=== PATIENT | female | born 1975 | race Caucasian/White ===

== ENCOUNTER → 2017-12-01 | Outpatient (CLI) | payer SELFPAY ==
[~2017-12-01] MED LIST: CEPH500 PO; Cephalexin500 MG PO; Cleocin HCl150 MG PO; DIPH50; Diflucan100 MG PO; FURO20 PO; Flonase 0.05% N16 GM; HYDACE5 PO; HYDHCL25; LEVSOD150 PO; LEVSOD50; LORA10ER; LOVA20; METF500; NAPR550 PO; OMEP20ER PO; PRED10 PO; PRED20 PO; Prinivil10 MG PO; SERT50 PO; SIMV10; SULTRIDS PO
== END | disposition home or self-care (01) ==
LOC: LAB 17:45 → LAB SHORT 17:45
DX: L08.9 Local infection of the skin and subcutaneous tissue, unspecified (principal)
CPT/HCPCS: 87070; 87077; 87147; 87186; 87205

== ENCOUNTER 2020-08-21 12:54 | Emergency (ER) | payer OTHER ==
[~2020-08-21] VITALS: Ht 165.1 cm; Wt 134.5 kg
[2020-08-21 14:09] LABS: BASOPHILS ABSOLUTE AUTO 0.07 K/mm3 (0.00-0.23); BASOPHILS PERCENT AUTO 1 % (0-2); EOSINOPHILS ABSOLUTE AUTO 0.08 K/mm3 (0.00-0.68); EOSINOPHILS PERCENT AUTO 1 % (0-6); Hematocrit 44.1 % (33.0-51.0); Hemoglobin 14.5 g/dL (11.5-16.0); IMMATURE GRAN ABSOLUTE AUTO 0.05 K/mm3 (0.00-0.10); IMMATURE GRAN PERCENT AUTO 0 % (0-1); LYMPHOCYTES ABSOLUTE AUTO 2.35 K/mm3 (0.84-5.20); LYMPHOCYTES PERCENT AUTO 17 % (21-46); MONOCYTES PERCENT AUTO 6 % (4-13); Mean Corpuscular HGB 29.7 pg (26.0-34.0); Mean Corpuscular HGB Conc 32.9 g/dL (31.5-36.5); Mean Corpuscular Volume 90 fL (80-100); Mean Platelet Volume 9.1 fL (9.1-12.4); NEUTROPHILS ABSOLUTE AUTO 10.15 K/mm3 (1.96-9.15); NEUTROPHILS PERCENT AUTO 75 % (41-73); Platelet Count 454 K/mm3 (150-400); RDW Coefficient Variation 14.4 % (11.7-14.2); RDW Standard Deviation 47.7 fL (35.1-46.3); Red Blood Cell Count 4.88 M/mm3 (3.80-5.20)
[2020-08-21 14:19] LABS: Alanine Aminotransfer (ALT/SGP 36 U/L (12-78); Albumin, Blood 3.5 g/dL (3.4-5.0); Albumin/Globulin Ratio 0.6 (0.8-1.8); Alk Phos 104 U/L (50-136); Anion Gap 9 mmol/L (6-16); Aspartate Aminotrans (AST/SGOT 27 U/L (12-37); Bilirubin, Total 0.2 mg/dL (0.1-1.0); Blood Urea Nitrogen 17 mg/dL (8-24); Bun/Creatinine Ratio 17.7 (12.0-20.0); CO2, Blood 25 mmol/L (21-32); Chloride, Blood 103 mmol/L (98-108); Creatinine, Blood 0.96 mg/dL (0.40-1.00); Globulin, Blood 5.6 g/dL (2.2-4.0); Glomerular Filtration Rate >60 (60-); Glucose, Blood 157 mg/dL (70-99); Potassium, Blood 4.1 mmol/L (3.5-5.5); Sodium, Blood 137 mmol/L (136-145); Total Protein, Blood 9.1 g/dL (6.4-8.2)
[2020-08-21] MEDS ORDERED: Prinivil10 MG PO (16:58)
[2020-08-21] MEDS ORDERED: FLUC150A PO (16:58)
== END 2020-08-21 17:07 | disposition home or self-care (01) ==
LOC: ER 12:54
PROVIDERS: Physician Assistant
DX: I89.0 Lymphedema, not elsewhere classified (principal); R06.02 Shortness of breath; I10 Essential (primary) hypertension; E03.9 Hypothyroidism, unspecified
CPT/HCPCS: 36415; 71260; 80053; 83880; 84484; 85025; 85379; 93005; 93010; 93971; 99285-25; A9270; J2405; Q9967

== ENCOUNTER 2021-01-24 18:11 | Inpatient (IN) | payer OTHER ==
[~2021-01-24] VITALS: Ht 167.6 cm; Wt 140.8 kg
[~2021-01-24 18:11] MED LIST changes: +FLUC150A PO
[2021-01-24 18:51] LABS: PCO2 Arterial 36.8 mmHg (35-45); PO2 Arterial 56.8 mmHg (80-100)
[2021-01-24 19:18] LABS: BASOPHILS ABSOLUTE AUTO 0.01 K/mm3 (0.00-0.23); BASOPHILS PERCENT AUTO 0 % (0-2); EOSINOPHILS PERCENT AUTO 0 % (0-6); Hematocrit 44.1 % (33.0-51.0); Hemoglobin 14.3 g/dL (11.5-16.0); IMMATURE GRAN ABSOLUTE AUTO 0.07 K/mm3 (0.00-0.10); IMMATURE GRAN PERCENT AUTO 1 % (0-1); LYMPHOCYTES ABSOLUTE AUTO 0.78 K/mm3 (0.84-5.20); LYMPHOCYTES PERCENT AUTO 9 % (21-46); MONOCYTES ABSOLUTE AUTO 0.32 K/mm3 (0.16-1.47); MONOCYTES PERCENT AUTO 4 % (4-13); Mean Corpuscular HGB 29.4 pg (26.0-34.0); Mean Corpuscular HGB Conc 32.4 g/dL (31.5-36.5); Mean Corpuscular Volume 91 fL (80-100); Mean Platelet Volume 10.2 fL (9.1-12.4); NEUTROPHILS ABSOLUTE AUTO 7.29 K/mm3 (1.96-9.15); NEUTROPHILS PERCENT AUTO 86 % (41-73); Platelet Count 309 K/mm3 (150-400); RDW Coefficient Variation 14.2 % (11.7-14.2); RDW Standard Deviation 47.3 fL (35.1-46.3); Red Blood Cell Count 4.87 M/mm3 (3.80-5.20); White Blood Cell Count 8.47 K/mm3 (4.00-11.30)
[2021-01-24 19:30] LABS: SARS-Cov-2 (COVID-19) PCR, MMC POSITIVE (NEGATIVE)
[2021-01-24 19:32] LABS: Alanine Aminotransfer (ALT/SGP 49 U/L (12-78); Albumin/Globulin Ratio 0.6 (0.8-1.8); Alk Phos 72 U/L (50-136); Anion Gap 10 mmol/L (6-16); Aspartate Aminotrans (AST/SGOT 98 U/L (12-37); Bilirubin, Total 0.4 mg/dL (0.1-1.0); Blood Urea Nitrogen 14 mg/dL (8-24); CO2, Blood 25 mmol/L (21-32); Calcium, Blood 8.9 mg/dL (8.5-10.1); Chloride, Blood 98 mmol/L (98-108); Creatinine, Blood 0.87 mg/dL (0.40-1.00); Globulin, Blood 5.1 g/dL (2.2-4.0); Glomerular Filtration Rate >60 (60-); Glucose, Blood 182 mg/dL (70-99); Magnesium, Blood 2.3 mg/dL (1.6-2.4); Potassium, Blood 3.9 mmol/L (3.5-5.5); Sodium, Blood 133 mmol/L (136-145); Total Protein, Blood 8.1 g/dL (6.4-8.2); Troponin I 0.095 ng/mL (0.000-0.040)
--- NOTE | 2021-01-25 03:00 | NUR ---
PT ADMITTED TO ROOM ICU 9 AT 0220 FROM ED. REPORT RECEIVED. SLIDE TRANSFERRED TO BED FROM [facility]. PT DEMONSTRATES EXERTIONAL DYSPNEA. WEARING BIPAP AT 18/14 WITH FIO2 AT 100 PERCENT. MAINTAINS SATURATIONS 90-93 PERCENT. PT ALERT AND ORIENTED. PLEASANT AND COOPERATIVE WITH CARE AND ASSESSMENT. GOOD HISTORIAN. STATES SHE HAS NOT FELT WELL FOR > 1 WEEK. HAS NOT HAD ANY PRODUCTIVE COUGHS. WILL REVIEW CHART AND PLAN OF CARE FOR THIS PT.
[2021-01-25 04:31] LABS: Source, Urine Catheter
[2021-01-25 04:34] LABS: Bilirubin, Urine Neg (Neg); Blood, Urine 4+ (Neg); Glucose Qualitative, Urine Neg (Neg); Ketones, Urine Neg (Neg); Leukocyte Esterase, Urine 1+ (Neg); Nitrite, Urine Neg (Neg); Protein, Urine 3+ (Neg); Specific Gravity, Urine 1.015 (1.003-1.022); Urobilinogen, Urine 1+ (Normal)
[2021-01-25 04:38] LABS: Appearance, Urine Clear (Clear); Color, Urine Amber (P-Yellow)
[2021-01-25 04:39] LABS: Bacteria Mod /hpf; Red Blood Cells, Urine 0-2 /hpf (0-2)
[2021-01-25 04:40] LABS: Squamous Epithelial Cells Few /hpf (Few)
[2021-01-25 05:25] LABS: BASOPHILS ABSOLUTE AUTO 0.01 K/mm3 (0.00-0.23); BASOPHILS PERCENT AUTO 0 % (0-2); EOSINOPHILS PERCENT AUTO 0 % (0-6); Hematocrit 41.7 % (33.0-51.0); Hemoglobin 13.6 g/dL (11.5-16.0); IMMATURE GRAN ABSOLUTE AUTO 0.05 K/mm3 (0.00-0.10); IMMATURE GRAN PERCENT AUTO 1 % (0-1); LYMPHOCYTES ABSOLUTE AUTO 0.78 K/mm3 (0.84-5.20); LYMPHOCYTES PERCENT AUTO 10 % (21-46); MONOCYTES ABSOLUTE AUTO 0.37 K/mm3 (0.16-1.47); MONOCYTES PERCENT AUTO 5 % (4-13); Mean Corpuscular HGB 29.4 pg (26.0-34.0); Mean Corpuscular HGB Conc 32.6 g/dL (31.5-36.5); Mean Corpuscular Volume 90 fL (80-100); Mean Platelet Volume 9.7 fL (9.1-12.4); NEUTROPHILS ABSOLUTE AUTO 6.35 K/mm3 (1.96-9.15); NEUTROPHILS PERCENT AUTO 84 % (41-73); Platelet Count 293 K/mm3 (150-400); RDW Coefficient Variation 14.3 % (11.7-14.2); Red Blood Cell Count 4.63 M/mm3 (3.80-5.20); White Blood Cell Count 7.56 K/mm3 (4.00-11.30)
[2021-01-25 05:48] LABS: Alanine Aminotransfer (ALT/SGP 47 U/L (12-78); Albumin, Blood 2.7 g/dL (3.4-5.0); Albumin/Globulin Ratio 0.5 (0.8-1.8); Alk Phos 65 U/L (50-136); Anion Gap 9 mmol/L (6-16); Aspartate Aminotrans (AST/SGOT 78 U/L (12-37); Bilirubin, Total 0.3 mg/dL (0.1-1.0); Blood Urea Nitrogen 18 mg/dL (8-24); Bun/Creatinine Ratio 21.6 (12.0-20.0); CO2, Blood 27 mmol/L (21-32); Chloride, Blood 101 mmol/L (98-108); Creatinine, Blood 0.83 mg/dL (0.40-1.00); Globulin, Blood 5.1 g/dL (2.2-4.0); Glomerular Filtration Rate >60 (60-); Glucose, Blood 163 mg/dL (70-99); Potassium, Blood 3.8 mmol/L (3.5-5.5); Sodium, Blood 137 mmol/L (136-145); Total Protein, Blood 7.8 g/dL (6.4-8.2)
--- NOTE | 2021-01-25 06:20 | NUR ---
PT HAS MADE SEVERAL ATTEMPTS TO VOID THIS MORNING AND WAS BLADDER SCANNED FOR > 450 ML. PT AGREES TO AND RECEIVES BROTHERS CATHETER. NO ISSUES WITH INSERTION. URINE SAMPLE JOSELUIS IN COLOR. SAMPLE SENT TO LAB FOR PROCESSING UA. RESPIRATORY THERAPY INCREASES BIPAP TO 18/15 TO HELP PT MAINTAIN > 90 PERCENT SATURATIONS. PT HAS NO COMPLAINTS THIS MORNING. WILL CONTINUE TO MONITOR PT, AND WILL REPORT OFF TO ONCOMING RN.
--- NOTE | 2021-01-25 08:17 | NUR ---
Noted pt was alert, awake, and able to carry on conversation. States that she is tolerating the bipap, but the pressures are uncomfortable. SpO2 while supine ranging 87-93%, even after deep breathing, coughing, and repositioning on the supine position. She was assisted to lie on her left side, and spo2 is consistently 96-98%. she appears to be comfortable.
--- NOTE | 2021-01-25 10:37 | NUR ---
ASSUMED CARE REPORT FROM MCKAYLA/BERNIE AT 0700. PT RESTING IN BED. BIPAP IN PLACE, 100%. RR 40'S. PT ABLE TO SPEAK IN SHORT SENTANCES. LUNGS DIM THROUGHOUT. PT STATES SHE IS TOLERATING BIPAP AT THIS TIME. ABLE TO REPOSITION SELF. MAEW. SCALING TO LOWER EXT BILATERALLY. BROTHERS PATENT, DRAINING CLEAR YELLOW URINE TO GRAVITY. VSS. WILL CONTINUE TO MONITOR.
--- NOTE | 2021-01-25 13:11 | NUR ---
REASSESSMENT PT STATUS UNCHANGED. PRONED SELF FOR SHORT PERIOD OF TIME, APPROX 1.5 HOURS.
--- NOTE | 2021-01-25 16:12 | NUR ---
Chika has been awake alert, oriented when awakened from naps. Sleeping intermittently all day long, wearing the bipap. Fio2 was weaned from 100% to 80% at 1600. She c/o the mask being uncomfortable, blows air into her eyes. Discussed with RT Heather options for this evening; possibly a full face mask may be better. Pt has also been self-repositioning at times with cues, other times independently. She has been able to prone twice today, for at least 1 hour at a time. Urine output is decreasing from last night, still clear yellow, but dark and 450 cc output total this shift.
--- NOTE | 2021-01-25 19:56 | NUR ---
ASSUMED CARE OF PT AT 1900, REPORT RECEIVED FROM JEANNIE DE LA CRUZ. PT RESTING IN BED ON BIPAP, TOLERATING WELL. BIPAP SETTINGS 18/15 FIO2 80% WITH RR 20'S. PT ALERT AND ORIENTED, DENIES NEEDS AT THIS TIME. HAS REQUESTED SOMEONE CALL HER TO FIND OUT HOW HE IS DOING HE IS HOME SICK WITH COVID. PT ABLE TO MOVE SELF AROUND IN BED. BROTHERS DRAINING TO GRAVITY. PT NPO AT THIS TIME.
--- NOTE | 2021-01-25 23:05 | NUR ---
SPOKE WITH KARISHMA'S SUSHMA @ 2200 PER PT'S REQUEST TO CHECK ON HOW HE WAS DOING HE IS HOME WITH RUPAL. DURING PHONE CONVERSATION SUSHMA SHARED THAT HE IS HAVING A LOT OF PAIN AND IS UNABLE TO SLEEP, STATED THAT HE WAS GIVEN A PRESCRIPTION WHILE IN THE ED BUT HAS BEEN UNABLE TO FILL IT AND IS UNSURE WHAT IT WAS FOR (SAID IT WAS TO BE TAKEN ONCE A DAY X3 DAYS). SUSHMA SHARED THAT HE DOES NOT HAVE A WAY OF CHECKING HIS OXYGEN SATURATIONS BUT IS ON OXYGEN CURRENTLY. GAVE SUSHMA AN UPDATE ON KARISHMA, SUSHMA ASKED THAT WE TAKE GOOD CARE OF HER AND THAT HE HOPES "SHE MAKES IT, I'M NOT SURE I WILL". ENCOURAGED SUSHMA TO CALL EMS FOR WELFARE CHECK AT HOME, STATES HE IS NOT INTERESTED THEY "GOT PISSY WITH ME" LAST TIME HE SAW THEM. PROGRAM MANAGEMENT MANAGER CONSULT ORDERED THERE IS NO FAMILY NEARBY OR FRIENDS TO CHECK ON SUSHMA OR TO PROVIDE ANY ASSISTANCE IF NEEDED.
--- NOTE | 2021-01-26 01:45 | NUR ---
CALLED DR MARIE REGARDING PT'S INCREASING ANXIETY RELATED TO WEARING BIPAP MASK. NEW ORDER PLACED FOR PRECEDEX.
[2021-01-26 04:06] LABS: Hematocrit 41.5 % (33.0-51.0); Hemoglobin 13.1 g/dL (11.5-16.0); Mean Corpuscular HGB 29.1 pg (26.0-34.0); Mean Corpuscular HGB Conc 31.6 g/dL (31.5-36.5); Mean Corpuscular Volume 92 fL (80-100); Mean Platelet Volume 10.2 fL (9.1-12.4); NRBC ABSOLUTE 0.02 K/mm3 (0.00-0.02); NRBC Auto 0.2 /100 WBC (0.0-0.2); Platelet Count 335 K/mm3 (150-400); RDW Coefficient Variation 14.2 % (11.7-14.2); RDW Standard Deviation 48.2 fL (35.1-46.3)
[2021-01-26 04:20] LABS: Albumin, Blood 2.5 g/dL (3.4-5.0); Anion Gap 5 mmol/L (6-16); Blood Urea Nitrogen 23 mg/dL (8-24); Bun/Creatinine Ratio 28.3 (12.0-20.0); CO2, Blood 31 mmol/L (21-32); Calcium, Blood 8.1 mg/dL (8.5-10.1); Chloride, Blood 103 mmol/L (98-108); Creatinine, Blood 0.81 mg/dL (0.40-1.00); Glomerular Filtration Rate >60 (60-); Glucose, Blood 150 mg/dL (70-99); Magnesium, Blood 2.4 mg/dL (1.6-2.4); Phosphorus, Blood 2.4 mg/dL (2.5-4.9); Sodium, Blood 139 mmol/L (136-145)
--- NOTE | 2021-01-26 04:44 | NUR ---
UPDATE NO CHANGE TO PRIOR ASSESSMENT. PT REQUESTING FOOD AND DRINK ANYTIME STAFF ENTERS THE ROOM, TALKED TO PT ABOUT NPO STATUS AND RISK FOR ASPIRATION. ORAL SWABS USED TO WET MOUTH. PT STAYED PRONED FOR APPROX 30 MINUTES BEFORE TURNING ONTO HER SIDE DUE TO DISCOMFORT OF BEING PRONED. FIO2 INCREASED TO 85%. PT DENIES PAIN AT THIS TIME.
--- NOTE | 2021-01-26 06:32 | NUR ---
SHIFT SUMMARY PT REMAINS ON BIPAP, SETTINGS 18/15 FIO2 90% SPO2 92%. PRECEDEX STARTED THIS SHIFT, DUE TO PT'S INCREASING ANXIETY RELATED TO BIPAP MASK. TRIALED PT ON HFNC LASTING 15 MINS; SIPS OF WATER AND ENSURE GIVEN, PT TOLERATED WELL. ABLE TO HOLDS SPO2 >87% BEFORE PLACING BACK ON BIPAP. SBP SOFT AFTER PRECEDEX STARTED, TITRATED DOWN TO 0.2 MCG/KG (FROM 0.4 MCG/KG). DR MARIE NOTIFIED ABOUT SOFT PRESSURES, NEW ORDERS PLACED FOR 500 ML NS BOLUS AND 75 ML/HR FOR 1L AFTER BOLUS COMPLETE. BROTHERS DRAINING DARK JOSELUIS URINE TO GRAVITY, 450 ML'S OUT THIS SHIFT. PT ABLE TO REPOSITION SELF. PT REMAINS ALERT AND ORIENTED.
--- NOTE | 2021-01-26 10:14 | NUR ---
Call to Dr. Sams to request oral medication for anxiety to help the pt to tolerate the bipap, so that precedex gtt can be discontinued. Plan is to move the pt out to PCU 9 when the room is clean.
--- NOTE | 2021-01-26 10:54 | NUR ---
Attempted AirVo, but pt did not tolerate being off the bipap for longer than 2-3 minutes. Recovered her on bipap 100%, and then she could take oral ativan with sip of water by pulling mask aside, just for a few seconds. Pt is saying that she just wants to have something to drink, that she just wants to go home and get in the bathtub. Bipap mask pulled aside just briefly for sips of ensure.
--- NOTE | 2021-01-26 11:05 | NUR ---
TRANSFER PATIENT TRANSFERRED TO PCU ON BIPAP WITH ASSISTANCE OF RT. REPORT GIVEN TO PCU NURSE. NORMAL SALINE INFUSING AT 75 ML/HR. PRECEDEX DRIP STOPPED WHEN PATIENT WAS GIVEN ORAL ATIVAN.
--- NOTE | 2021-01-26 11:59 | NUR ---
Received report from [employer] [facility]CH[employer]ER and pt was transferred to pcu. She is alert to pain only. She is on BIPAP @ 90% and her RR is elevated in the 40-0's RT and Dr Sams are aware. Per Dr Sams pt was restarted on the prededex gtt at 0.2 mcg/kg/hr. Her heart rate is sustaining in the 70's. BP 112/90. Her left forearm IV was infiltrated so it was removed and a powerglide was intered to her right upper arm. She has her call light in reach.
--- NOTE | 2021-01-26 16:28 | NUR ---
Shift Summary Pt is oriented to herself and to pain and situation at times. She remains on the BIPAP and is currently at 100% fio2. She did pull her mask off once this afternoon as she was pretty anxious and ativan was given as ordered and was effective. She definitely does better on her side and she turns back and forth between her side and back. Her sats are currently in the 80's and Rt is aware. Clinimix was started as ordered. Her brooks remains in place. Her dad was updated and very grateful for her care. Her VSS.
--- NOTE | 2021-01-26 21:55 | NUR ---
2154, PT BECAME VERY AGITATED AND ANXIOUS - PULLED OFF BIPAP AND BEGAN TO SCREAM OUT FOR HELP WITH MASK OFF FACE AND IN HANDS. RN TO ROOM AND SAW MASK OFF FACE AND HOSE DISCONNECTED WELL. QUICKLY GOT MASK BACK ON FACE, AND INCREASED FIO2 TO100% UNTIL PATIENT WAS ABLE TO RECOVER. PRN ATIVAN GIVEN TO HELP KEEP PATIENT RELAXED TO TOLERATE BIPAP BETTER. 2158, PT NOW SATTING 90% STILL ON 100% FIO2, SITTING UPRIGHT WIHT A HIGH RR OF 60-70'S. BP 137/93. 2203, ATTEMPTING TO PRONE, SATS NOW 95% RR 50. HR 77.
[2021-01-27 03:59] LABS: Mean Corpuscular HGB 29.3 pg (26.0-34.0); Mean Corpuscular HGB Conc 31.6 g/dL (31.5-36.5); Mean Corpuscular Volume 93 fL (80-100); Mean Platelet Volume 10.1 fL (9.1-12.4); NRBC ABSOLUTE 0.02 K/mm3 (0.00-0.02); NRBC Auto 0.2 /100 WBC (0.0-0.2); Platelet Count 249 K/mm3 (150-400); RDW Coefficient Variation 14.2 % (11.7-14.2); RDW Standard Deviation 48.3 fL (35.1-46.3); White Blood Cell Count 10.94 K/mm3 (4.00-11.30)
[2021-01-27 04:15] LABS: Anion Gap 5 mmol/L (6-16); Blood Urea Nitrogen 30 mg/dL (8-24); Bun/Creatinine Ratio 34.5 (12.0-20.0); CO2, Blood 31 mmol/L (21-32); Calcium, Blood 7.9 mg/dL (8.5-10.1); Chloride, Blood 103 mmol/L (98-108); Creatinine, Blood 0.87 mg/dL (0.40-1.00); Glomerular Filtration Rate >60 (60-); Glucose, Blood 227 mg/dL (70-99); Magnesium, Blood 2.3 mg/dL (1.6-2.4); Phosphorus, Blood 2.6 mg/dL (2.5-4.9); Sodium, Blood 139 mmol/L (136-145)
--- NOTE | 2021-01-27 08:14 | NUR ---
PT FOUND TO BE ANXIOUS AND AGITATED AT SHIFT CHANGE. WAS PRONED BUT BECAME SO AGITATED SHE HAD TO TURN OVER TO HER BACK. SPO2 WAS INITITALLY IN THE 70'S BUT QUICKLY DROPPED TO 50'S. RESP RATE IN THE 70'S ON BIPAP WITH 100% FIO2. INCREASED PRECEDEX AND PT WAS GIVEN ATIVAN FOR ANXIETY WITHOUT RESULTS. CALLED FOR ER DOC TO INTUBATE PT AND EVENTUALLY CALLED A CODE BLUE DUE TO PT DECLINING RAPIDLY. PT NEVER LOST PULSE. STARTING TO MOTTLE IN UPPER EXTREMITIES. DR. CHAVARRIA FROM ANESTHESIA CAME AND INTUBATED PT. RSI KIT USED FOR INTUBATION. AFTER SPO2 STABILIZED WITH VENT PT WAS MOVED TO ICU 9. REPORT GIVEN TO RN AT BEDSIDE. DR. LONDON UPDATED IN PERSON ON ARRIVAL TO ICU WELL. STAFF WAS ABLE TO REACH HER MOM TO UPDATE BUT UNABLE TO GET .
--- NOTE | 2021-01-27 08:22 | NUR ---
SHIFT SUMMARY UPON ARRIVAL, PT WAS LETHARGIC, AND LYING IN SUPINE POSITION ON BED. EASILY AROUSABLE, BUT NOTED TO BE VERY ANXIOUS. SATS MAINTAINNG 88-94% ON BIPAP SETTINGS 18/15 100% FIO2. TELE READING NSR 70-80'S. BROTHERS IN PLACE DRIANING TO GRAVITY, MONTSE CARE PERFORMED. 2 BOWEL SMEARS - INCONTINENT. PT THROUGHOUT NIGHT BECAME INCREASINGLY AGITATED AND ANXIOUS ABOUT WEARING THE BIPAP MASK, MAKING O2 SATS GO DOWN. RN ADMINISTERED ATIVAN WITH HOPES THAT WOULD HELP PT CALM DOWN. PT RELAXED FOR ABOUT A FEW HOURS, WE PRONED AND REPOSITIONED SEE FIT TO HELP MAINTAIN SATS IN MEANTIME. LATER, PT BECAME MORE AND MORE AGITATED TO THE POINT OF RIPPING OFF BIPAP MASK AND SWINGING LEGS OVER BED RAILS. AT THIS POINT, RN STARTED PRECEDEX GTT AFTER CONSULTING WITH PCU CHARGE AND TWO ICU CHARGES. PRECEDEX STARTED AND PT REMAINED CALM AND STABLE. O2 SATS IMPROVED TO HIGH 90%'S WHILE PT PRONED, BP AND HR WNL. MAYBE AN HOUR OR TWO LATER, PT HAD ANOTHER ANXIOUS EPISODE - THIS RN CALLED MD TO GET ADDITIONAL ORDER OF ZYPREXA TO HELP KEEP PATIENT CALM, AND INCREASED FREQUENCY OF PRN ATIVAN FROM Q6 TO Q4. ALSO OBTAINED ORDER FOR SOFT WRIST RESTRAINTS. SOFT RESTRAINTS PUT IN PLACE WHILE PT IN PRONED POSITION. SATS >90%, HR 70'S, RR CONSISTENTLY BEEN RANGING 40-60 OVERNIGHT, WHICH WAS UNCHANGED SINCE PT WAS ADMITTED. VSS, UP UNTIL ABOUT 0700. 0700 - PM RN IN MIDDLE OF REPORT TO AM RN, NOTING THAT PATIENT IS ON FINE LINE BETWEEN STABLE AND UNSTABLE. IN MIDST OF REPORT, PT HAD ANOTHER ANXIETY ATTACK, PM RN ENTERED ROOM TO GET PATIENT TO CALM DOWN AGAIN, GAVE PRN ATIVAN, INCREASED PRECEDEX. DID ALL INTERVENTIONS THAT HELPED PATIENT RELAX BEFORE. UNFORTUNATELY, PT DID NOT CALM DOWN NOR RECOVER HER SATS AT THIS TIME. RN CALLED FOR RESPIRTATORY, ACCOUNTING RECONCILIATION CLERK AND MULTIPLE NURSES TO HELP PULL MEDICINE, ATTEMPT TO REPOSITION HER SUPINE, GIVE HER A BREAK FROM HER RESTRAINTS TO NOT FEEL CONFINED. PT RAPIDLY DECLINING, CHRISTIAN MILLER CALLED AND TEAM AWAITS SOME TIME FOR MD TO ARRIVE TO INTUBATE. ER MD DID ARRIVE, BUT DID NOT INTUBATE D/T TO PATIENT HAVING PULSE AND STATING PT IS STABLE. PT SATS DROP TO 50% AT THIS TIME, MULTIPLE NURSES AND RESPIRATORY STAFF IN ROOM HOLDING BIPAP AND DOING ALL INTERVENTIONS POSSIBLE TO GET PT SATS UP TO 77%. A DIFFERENT MD ARRIVES, SATS EVENTUALLY DROP TO 40%, MD QUICKLY INTUBATES PATIENT. PT VENTED, OG TUBE PLACED, RESTRAINTS BACK ON, SEDATED SOME, AND TRANSFERRED TO ICU.
[2021-01-27 10:57] LABS: PCO2 Arterial 44.2 mmHg (35-45); PO2 Arterial 72.9 mmHg (80-100)
--- NOTE | 2021-01-27 10:58 | NUR ---
PT TO ICU 9 FROM PCU @0800 FOLLOWING RESPIRATORY CODE WITH EMERGENT INTUBATION. PT ARRIVES VENTILATED, CURRENT VENT SETTINGS PC 22/20. PROPOFOL @ 50 MCG/KG/MIN AND PRECEDEX @ 1.4 MCG/KG/HR. LEVOPHED STARTED D/T PERSISTENT HYPOTENSION WITH MAP IN 50%. LEVOPHED INFUSING AT 5 MCG/MIN TO MAINTAIN MAP>65. OGT TO LIS WITH MINIMUM BILE OUTPUT. PICC PLACED TO JAZZ. DR. LONDON CALLED PT'S TO UPDATE, LEFT VOICEMAIL.
--- NOTE | 2021-01-27 18:43 | NUR ---
PT REMAINS INTUBATED, VENT SETTINGS AC 26/360/16/55%. PRECEDEX ON STANDBY. PROPOFOL @ 50 MCG/KG/MIN. LEVOPHED @ 5 MCG/MIN. 700 ML DARK JOSELUIS URINE WITH MODERATE AMOUNT OF SEDIMENT. PT'S UPDATED WITH PT'S STATUS AND PLAN OF CARE, PER DR. LONDON- WAS DISTRAUGHT AND A WELFARE CHECK WAS INITITATED. WILL REPORT TO ONCOMING NURSE.
--- NOTE | 2021-01-27 20:00 | NUR ---
IN TO SEE PT, PT BREATHING RAPIDLY, SATS HI 80'S, FIGHTING THE VENT, BROTHERS CATH HOOKED UP TO TEMP PROBE, TEMP SHOWS 104, EXTREMITIES COOL, LEVO @ 5MCG, NOTIFIED OF TEMP AND BREATHING RATE, SATS. ORDERS RECEIVED. LUNGS COARSE T/O WITH RETURN OF WHITE/SPAIN IN ETT. ABD SOFT, BROTHERS WITH JOSELUIS RETURN. PLAN TO PRONE AND PARALYZE.
--- NOTE | 2021-01-27 21:00 | NUR ---
PT STARTED ON NIMBEX, BOLUS GIVEN PER ORDERS, PT PLACED PRONE WITH ASSIST OF RESP THERAPY AND PHYS.THERAPY AND OCCUP.THER. PT TOLERATED WELL. PT CONTINUES WITH ELEV.TEMP, MEDICATED WITH TYLENOL PT, EXTREMITIES STILL COOL, DIFFICULT TO GET A WAVEFORM FOR BIOX SO EARPROBE IN USE. PT PADDED WELL, JAZZ PICC LINE DRESSING EDGES ROLLED UP, CHANGED PER STERILE TECHNIQUE. PT NOW ON PROPOFOL 40MCG/KG, NIMBEX 2MCG/KG, LEVO @ 5MCG/
--- NOTE | 2021-01-28 01:15 | NUR ---
PT HAS BEEN IN PRONE POSITION SINCE AROUND 2099, SHE WAS STARTED ON NIMBEX @ 2 AND PROPOFOL IS @ 40 MCG/KG, SHE IS TOLERATING WELL, SKIN IS DIAPHORETIC AND COOL, TEMP IS SLOWLY COMING DOWN TO 103.1. PT BEING REPOSITIONED Q2. NO OTHER CHANGES SINCE SHIFT ASSESSMENT.
[2021-01-28 03:37] LABS: Hematocrit 41.6 % (33.0-51.0); Hemoglobin 13.1 g/dL (11.5-16.0); Mean Corpuscular HGB 29.9 pg (26.0-34.0); Mean Corpuscular HGB Conc 31.5 g/dL (31.5-36.5); Mean Corpuscular Volume 95 fL (80-100); NRBC ABSOLUTE 0.03 K/mm3 (0.00-0.02); NRBC Auto 0.2 /100 WBC (0.0-0.2); Platelet Count 106 K/mm3 (150-400); RDW Coefficient Variation 14.8 % (11.7-14.2); RDW Standard Deviation 52.2 fL (35.1-46.3); Red Blood Cell Count 4.38 M/mm3 (3.80-5.20)
[2021-01-28 03:51] LABS: Bun/Creatinine Ratio 28.8 (12.0-20.0); Calcium, Blood 7.3 mg/dL (8.5-10.1); Creatinine, Blood 1.18 mg/dL (0.40-1.00); Magnesium, Blood 2.2 mg/dL (1.6-2.4); Phosphorus, Blood 3.5 mg/dL (2.5-4.9)
--- NOTE | 2021-01-28 04:00 | NUR ---
PT'S BLOOD PRESSURE HAS STABILIZED AND THE LEVOPHED HAS BEEN PLACED ON STANDBY NO OTHER CHANGES FROM MIDNIGHT.
[2021-01-28 04:07] LABS: BAND PERCENT MAN 12 % (0-8); BASOPHILS PERCENT MAN 0 % (0-2); EOSINOPHILS PERCENT MAN 0 % (0-6); LYMPHOCYTES ABSOLUTE MAN 0.75 K/mm3 (0.84-5.20); LYMPHOCYTES PERCENT MAN 6 % (21-46); METAMYELOCYTE ABSOLUTE MAN 0.12 K/mm3 (0.00-0.00); METAMYELOCYTE PERCENT MAN 1 % (0-0); MONOCYTES ABSOLUTE MAN 0.25 K/mm3 (0.16-1.47); MONOCYTES PERCENT MAN 2 % (4-13); MYELOCYTE ABSOLUTE MAN 0.12 K/mm3 (0.00-0.00); MYELOCYTE PERCENT MAN 1 % (0-0); NEUTROPHILS ABSOLUTE MAN 11.34 K/mm3 (1.96-9.15); SEG NEUTROPHILS PERCENT MAN 78 % (41-73); TOTAL CELLS COUNTED 100
[2021-01-28 05:50] LABS: PCO2 Arterial 53.7 mmHg (35-45); PO2 Arterial 90.3 mmHg (80-100); pH Blood Arterial 7.31 (7.35-7.45)
--- NOTE | 2021-01-28 06:29 | NUR ---
KARISHMA HAS BEEN IN PRONE POSITION SINCE EARLY IN THE SHIFT, SHE IS ON NIMBEX @ 2, PROPOFOL @ 50, NS @ 75, LEVO ON SB, PRECEDEX ON SB. VENT SETTINGS AC 26, vT 360, PEEP 16, FIO2 65%. PIVOT TUBE FEEDING @ 20ML/HR WITH CBG'S OF 184 AND 208. CONTINUES IN NSR, BLOOD PRESSURE STABLE, BROTHERS TO GRAVITY DRAINAGE. NO OTHER CHANGES NOTED.
--- NOTE | 2021-01-28 09:29 | NUR ---
AM NOTE... ASSUMED CARE OF PT AT 0700, PT IS INTUBATED, SEDATED AND PARALYZED FOR VENT TOLERANCE. PT IS CURRENTLY PRONED ON AC/PC AT 26/360/18/65% WITH O2 SATS>90% L/S COARSE IN THE UPPER LOBES AND DIM IN THE LOWER LOBES. PT IS IN ST AT 100-110'S, PT HAS DEPENDENT EDEMA TO HER HANDS AND FACE. PT'S BP STABLE WITH LEVOPHED OFF SINCE LAST NIGHT. TUBE FEED IS RUNNING PER ORDERS WITH NO RESIDUALS. PT IS NOTED TO HAVE A BLOODY NOSE AND A LARGE AMOUNT OF BLOOD SUCTIONED FROM HER MOUTH, IT IS UNKNOWN IF THERE IS TRUAMA IN THE PT'S MOUTH OR IF THIS IS FROM HER BLOODY NOSE D/T THE PT BEING PRONE AND NOT BEING ABLE TO SEE WELL IN HER MOUTH. PT'S BROTHERS IS PATENT AND DRAINING TO GRAVITY. NIMBEX WAS ON 2 AT THE START OF THIS SHIFT, THIS RN TURNED IT FROM 2 TO 1.5, PT IS TOLERATING THIS WELL AND STILL BREATHING WITH THE VENT AT 26 PER MIN AND HER O2 SATS ARE STABLE. PT'S PROPOFOL IS AT 40, PRECEDEX IS ON STANDBY. PT'S BIS IS 20-30'S WHEN WORKING, A NEW BIS STICKER WAS PLACED BUT THE MONITOR STILL IS NOT WORKING ALL THE TIME. AT 0900 DR. LONDON AT THE BEDSIDE TO ASSESS THE PT, THE PT'S NS WAS D/C'd. THE PT'S FATHER WAS UPDATED BY THIS AM. WILL CONTINUE TO MONITOR.
--- NOTE | 2021-01-28 13:40 | NUR ---
PT UPDATE... THE PT WAS UNPRONED AT 1230, THE PT'S O2 SATS DROPPE DOWN TO 74%, DR. LONDON WAS IN THE ROOM AND INCREASED HER PEEP TO 18 AND HER FIO2 TO 100% THIS BROUGHT HER O2 SATS UP TO 88-90%. WILL CONTINUE TO MONITOR.
--- NOTE | 2021-01-28 18:24 | NUR ---
SHIFT SUMMARY... ONCE THE PT WAS UNPRONED THE PEEP INCREASED FROM 16 TO 18 AND THE FIO2 INCREASED FROM 65% TO 100% KEEPING THE PT'S O2 SATS>90% AT APROX 1600 THE PT'S O2 SATS DROPPED DOWN TO 82% SHE WAS TURNED ON HER LEFT SIDE, THE PT WAS PUT BACK SUPINE, THIS HELPED A LITTLE BIT BUT HER O2 SATS WERE STILL 86-87%, RT WAS CALLED AND CAME INTO THE ROOM, PRECUSSION WAS DONE ON THE PT'S LEFT SIDE WHERE THERE IS A LARGE CONSOLIDATION PER THE CHEST XRAY. AFTER THIS THE PT'S O2 SATS IMPROVED TO 90%. PT'S VS HAVE BEEN STABLE T/O THE SHIFT, THE BIS MONITOR HAS BEEN WORKING OFF AND ON T/O THE SHIFT. PT'S BROTHERS IS PATENT AND DRAINING TO GRAVITY. PT HAS NOT HAD A BM THIS SHIFT. PLAN IS TO RE-PRONE THE PT PER THE PRONING SCHEDULE. WILL CONITNUE TO MONITOR UNTIL REPORT IS GIVEN TO ONCOMING RN.
[2021-01-29 04:46] LABS: Hematocrit 45.7 % (33.0-51.0); Hemoglobin 13.6 g/dL (11.5-16.0); Mean Corpuscular HGB 29.4 pg (26.0-34.0); Mean Corpuscular HGB Conc 29.8 g/dL (31.5-36.5); Mean Corpuscular Volume 99 fL (80-100); Mean Platelet Volume 11.8 fL (9.1-12.4); NRBC ABSOLUTE 0.04 K/mm3 (0.00-0.02); NRBC Auto 0.2 /100 WBC (0.0-0.2); Platelet Count 112 K/mm3 (150-400); RDW Coefficient Variation 15.1 % (11.7-14.2); Red Blood Cell Count 4.63 M/mm3 (3.80-5.20); White Blood Cell Count 20.66 K/mm3 (4.00-11.30)
[2021-01-29 04:49] LABS: Bun/Creatinine Ratio 20.8 (12.0-20.0); Calcium, Blood 7.4 mg/dL (8.5-10.1); Creatinine, Blood 1.06 mg/dL (0.40-1.00); Magnesium, Blood 2.4 mg/dL (1.6-2.4); Phosphorus, Blood 2.6 mg/dL (2.5-4.9); Potassium, Blood 4.3 mmol/L (3.5-5.5)
[2021-01-29 05:41] LABS: BAND PERCENT MAN 31 % (0-8); BASOPHILS PERCENT MAN 0 % (0-2); EOSINOPHILS PERCENT MAN 0 % (0-6); LYMPHOCYTES ABSOLUTE MAN 0.82 K/mm3 (0.84-5.20); LYMPHOCYTES PERCENT MAN 4 % (21-46); METAMYELOCYTE PERCENT MAN 1 % (0-0); MONOCYTES PERCENT MAN 1 % (4-13); NEUTROPHILS ABSOLUTE MAN 19.42 K/mm3 (1.96-9.15); SEG NEUTROPHILS PERCENT MAN 63 % (41-73); TOTAL CELLS COUNTED 100
[2021-01-29 05:57] LABS: PCO2 Arterial 82.6 mmHg (35-45); PO2 Arterial 80.8 mmHg (80-100); pH Blood Arterial 7.19 (7.35-7.45)
--- NOTE | 2021-01-29 06:37 | NUR ---
KARISHMA WAS TURNED TO PRONE POSITION EARLY IN THE SHIFT AND HAS BEEN TURNED Q4 WITH HER HEAD. SHE CONTINUES ON THE VENTILATOR WITH SETTINGS AC 26/360/16/90% PROPOFOL @ 40MCG/KG, NIMBEX 1.5 MCG/KG, NS @ TKO. A DOSE OF REMDESIVIR & VANCO MYCIN GIVEN. TF PIVOT 1.5 @ 20ML PER OG. SHE HAS HAD ORAL CARE Q4 AND SHE HAS HAD BLEEDING FROM THE RIGHT SIDE OF HER MOUTH WELL FROM HER NOSE. HER EYES ARE SWOLLEN. PICC IN JAZZ, PG IN PRESTON, PERIPH IN RIGHT HAND. ABG RESULTS CALLED TO WITH NO CHANGES.
--- NOTE | 2021-01-29 08:12 | NUR ---
AM NOTE... ASSUMED CARE OF PT AT 0700, PT IS INTUBATED, SEDATED AND PARALYZED ON NIMBEX AT 1.5MCG, AND PROPOFOL AT 40MCG. PT IS CURRENTLY PRONED AND HAS BEEN SINCE 1999 LAST NIGHT, THE VENT SETTINGS ARE: AC/VC: 26/360/18/90% WITH O2 SATS AT 91-93%. PT'S L/S SLIGHLTY COARSE AND DIM T/O. PT'S ET TUBE IS 8.0 AND 24 AT THE LIP, 23 AT THE TEETH. PT IS COMPLIANT WITH THE VENT AT THIS TIME, TOF IS 0/4 AT A SETTING OF 5. PT HAS A LARGE AMOUNT OF DEPENDENT FACIAL AND MONTSE-ORBITAL EDEMA FROM BEING PRONED. PT ALSO HAS BEEN HAVING BLEEDING FROM HER MOUTH AND NOSE. WHEN SUCTIONED THE PT DOES NOT HAVE A COUGH REFLEX, A SMALL AMOUTH OF THICK SPAIN SECRETIONS NOTED DURING SUCTIONING. PT IS ON TUBE FEEDS VIA OG TUBE RUNNING AT 20MLS/HR WHICH IS THE GOAL RATE, NO RESIDUALS NOTED THIS AM. BT RESENT AND HYPOACTIVE, ABD IS SOFT TO PALP ON THE LEFT SIDE UNABLE TO ASSESS THE RIGHT D/T THE PT BEING PRONED. PT HAS 1+ EDEMA TO HER BLE, THE PULSES ARE PALPABLE ON THE RIGHT LEG BUT DOPPLER WAS NEEDED TO FINE THE PULSES ON THE LEFT. THE RIGHT LEG AND FOOT ARE WARM TO TOUCH BUT THE LEFT FOOT IS COOL WITH A 4 SECOND CAP REFILL. PT'S BROTHERS IS PATENT AND DRAINING TO GRAVITY. WILL CONTINUE TO MONITOR.
[2021-01-29 11:25] LABS: Vancomycin, Random 12.1 ug/mL
--- NOTE | 2021-01-29 13:45 | NUR ---
PT UPDATE... THE PT WAS TURNED SUPINE APROX 1230, ONCE SUPINE THE PT'S O2 SATS DROPPED DOWN TO 78%, RT WAS IN THE ROOM AND CHANGED THE VENT SETTINGS TO AN INCREASED RR IN THE 30'S AND INCREASED THE FIO2 TO 100% PEEP CONITNUES TO BE AT 18. APROX 15 MINS LATER THE PT'S O2 SATS IMPROVED TO 90% FOR 8 MINS THEN DROPPED BACK DOWN TO 86-87%. DR. FINLEY NOTIFIED, WILL CONITUE TO MONITOR THE PT AND IF HER O2 SATS DO NOT IMPROVE WILL RE-PRONE THE PT. WILL CONTINUE TO MONITOR.
--- NOTE | 2021-01-29 18:43 | NUR ---
SHIFT SUMMARY... AT APROX 1500 THE PT'S O2 SAT HAD STARTED TO DROP AGAIN DOWN FROM 87% TO 85% RT WAS CALLED AND CHANGES WERE MADE TO THE PT'S VENT, SHE WAS CHANGED TO PRESSURE SUPPORT AT RATE OF 26 PRESSURE OF 16 PEEP OF 20 AND 100% PT'S O2 SATS IMPROVED TO THE LOW 90'S. PT'S OTHER VS WERE STABLE T/O THE SHIFT. PT HAS NOT HAD BM THIS SHIFT. PT'S BROTHERS IS PATENT AND DRAINING TO GRAVITY, THE PT'S TUBE FEEDS ARE AT GOAL WITH NO RESIDUALS. THIS RN SPOKE WITH THE PT'S MOTHER, FATHER AND , AN UPDATE WAS GIVEN TO THE MOTHER AND THE FATHER BUT WHEN THIS RN SPOKE WITH THE AND OFFERED HIM AN UPDATE HE SAID "NO! I JUST WANT TO SPEAK TO MY ." THE CALL WAS TRANSFERED INTO THE PT'S ROOM AND THE PHONE WAS HELD UP TO THE PT'S EAR WHILE THE SPOKE WITH HER UNTIL HE HUNG UP APROX 2 MINS LATER. THIS RN ALSO HELD THE PHONE FOR THE PT'S MOTHER AND FATHER TO SPEAK TO HER WELL. PALLIATIVE CARE CONSULT WAS PLACED AND THIS RN SPOKE WITH THE PALLAITIVE CARE RN ABOUT THIS PT AND PLAN OF CARE. WILL CONTINUE TO MONITOR UNTIL REPORT IS GIVEN TO ONCOMING RN.
[2021-01-29 19:18] LABS: PCO2 Arterial 78.2 mmHg (35-45); PO2 Arterial 60.7 mmHg (80-100); pH Blood Arterial 7.24 (7.35-7.45)
--- NOTE | 2021-01-29 20:00 | NUR ---
20:[address] FINLEY - no changes to vent settings or drips.
[2021-01-30 04:50] LABS: Hematocrit 38.1 % (33.0-51.0); Hemoglobin 11.3 g/dL (11.5-16.0); Mean Corpuscular HGB 29.2 pg (26.0-34.0); Mean Corpuscular HGB Conc 29.7 g/dL (31.5-36.5); Mean Corpuscular Volume 98 fL (80-100); NRBC ABSOLUTE 0.09 K/mm3 (0.00-0.02); NRBC Auto 0.6 /100 WBC (0.0-0.2); RDW Coefficient Variation 14.9 % (11.7-14.2); RDW Standard Deviation 53.8 fL (35.1-46.3); Red Blood Cell Count 3.87 M/mm3 (3.80-5.20); White Blood Cell Count 15.89 K/mm3 (4.00-11.30)
[2021-01-30 04:54] LABS: Mean Platelet Volume 12.5 fL (9.1-12.4); Platelet Count 107 K/mm3 (150-400)
[2021-01-30 05:21] LABS: Albumin, Blood 1.6 g/dL (3.4-5.0); Anion Gap 1 mmol/L (6-16); Blood Urea Nitrogen 38 mg/dL (8-24); CO2, Blood 36 mmol/L (21-32); Calcium, Blood 6.7 mg/dL (8.5-10.1); Chloride, Blood 102 mmol/L (98-108); Creatinine, Blood 1.73 mg/dL (0.40-1.00); Glomerular Filtration Rate 32 (60-); Glucose, Blood 417 mg/dL (70-99); Phosphorus, Blood 1.5 mg/dL (2.5-4.9); Potassium, Blood 3.8 mmol/L (3.5-5.5); Sodium, Blood 139 mmol/L (136-145)
[2021-01-30 06:27] LABS: BAND PERCENT MAN 34 % (0-8); BASOPHILS PERCENT MAN 0 % (0-2); EOSINOPHILS PERCENT MAN 0 % (0-6); LYMPHOCYTES ABSOLUTE MAN 0.47 K/mm3 (0.84-5.20); LYMPHOCYTES PERCENT MAN 3 % (21-46); MONOCYTES PERCENT MAN 0 % (4-13); MYELOCYTE ABSOLUTE MAN 0.31 K/mm3 (0.00-0.00); MYELOCYTE PERCENT MAN 2 % (0-0); NEUTROPHILS ABSOLUTE MAN 15.09 K/mm3 (1.96-9.15); SEG NEUTROPHILS PERCENT MAN 61 % (41-73); TOTAL CELLS COUNTED 100
--- NOTE | 2021-01-30 07:21 | NUR ---
Sedated and paralyzed. Respiratory supported by mechanical ventilation as documented. Hemodynamic: Around 04:23, while drawing blood, the patient's rhythm went into A.fib RVR at around [address] Davis's order she received Amiodarone bolus and was started on continuous drip. 06:00 After second rise in rate, contacted Dr. Davis again and a drip of Diltiazem was started. Urine via brooks catheter. No BM during the shift. On prone position since 20:00.
--- NOTE | 2021-01-30 08:15 | NUR ---
AM NOTE... ASSUMED CARE OF PT AT 0700. PT IS INTUBATED, SEDATED, PARALYZED AND PRONED. NIMBEX IS AT 1, PROPOFOL IS AT 40MCG. PT HAS SODIUM BICARB RUNNIN AT 150MLS/HR. CARDIZEM GTT AND AMIO GTT WERE STARTED D/T THE PT CONVERTING INTO AFIB W/RVR AT APROX 0420 THIS AM. PT'S BPs ARE SOFT BUT STABLE AT THIS TIME. PT HAS 1+ EDEMA TO HER BLE, HER FEET ARE COLD AND MOTTLED, THE TIPS OF HER TOES ARE PURPLE AND NONBLANCHING. PULSES ARE PALPABLE ON THE RIGHT LEG HOWEVER THE LEFT DORSAL PEDAL PULSE COULD NOT BE FOUND BY DOPPLER, THE LEFT P. TIBIAL PULSE WAS FOUND WITH DOPPLER BUT NO PALPATION. THE PT'S HANDS ARE TIGHT AND SWOLLEN, THERE IS MOTTLING TO THE BACK OF THE PT'S RIGHT ARM. PT'S VENT SETTING IS AC PRESSURE CONTROL: 28/ PC:16 PEEP: 20 100%, THE PT'S O2 SATS ARE CURRENTLY 90-92%. PT HAS AN 8.0 ET TUBE 23 AT THE TEETH. L/S CLEAR AND DIM. BT PRESENT AND HYPOACTIVE, PT HAS NOT HAD A BM SINCE 01/26, PT IS GETTING DOCUSATE VIA OG TUBE. PT'S TUBE FEEDINGS ARE AT GOAL OF 20MLS/HR WITH NO RESIDUALS. PT'S BROTHERS IS PATENT AND DRAINING TO GRAVITY. PT HAS BEEN FEBRILE AT 101.3 PER THE BROTHERS TEMP, PT WAS GIVEN TYLENOL WHICH DID NOT HELP THE PT'S TEMP INCREASED TO 101.5. PT HAS SEVERE FACIAL AND MONTSE-ORBITAL AND SEVERE SCLERAL EDEMA. WILL CONTINUE TO MONITOR.
--- NOTE | 2021-01-30 10:33 | NUR ---
Consultation service provided relating to proxy decision making guidelines. According to the cyber systems operations specialist, the principals has been largely unreachable for a goals of care discussion. The RN wanted to ascertain the degree to which, it would be appropriate to facilitate that conversation with the principals parents, if the remains absent or unresponsive. Per ORS 127.635 (2) (e), it is legally and ethically appropriate, as long as a good trav effort has been conducted to locate and engage the first, to default to the principals adult children, and then, if they are minors or non-existent, to the principals parents for proxy consent or treatment decision making support. Thank you for this consult. Srkianth Ho ThD
--- NOTE | 2021-01-30 12:11 | NUR ---
Family contacts [phone] Mom-Melanie [phone] Please see previous note from Srikanth Ho, regarding ethics consult & available proxys. remains unavailable to us by phone and also to Chika's dad, who has made many attempts to reach him also, including going to his home. He contacted 's brother to check on him further. Brother states he is staying at the home. I spoke to Chika's parents on a conference call for nearly an hour. Yoni is in a hotel locally, having come up on a vacation last week to see Chika and finding her hospitalized. Melanie is in [place] and was able to add Yoni to our call from her cell phone. I updated parents and explained the ethics consult and results. They were both agreeable to be Chika's proxy under the circumstances. Yoni agreed that pt's is currently not able or available to be a stable and present participant in pt's care. I answered their questions and gave them updates from case conferences yesterday and today with Chika's nurse. They are well aware of the critical & precarious nature of her status. They had been calling in and talking with providers and nurses regularly. I reviewed code status with parents and they are in agreement that they do not want CPR performed if Chika's heart were to fail. They are aware of her respiratory failure and renal failure at this time. Much time spent supporting and listening to both parents. Plan currently that they support is to continue full treatment with no CPR. Dad is going to come in at 1pm to see Chika in her room. I will meet him at [facility] and help him don PPE. Yoni reports that he is fully vaccinated. Yoni and Melanie will continue to discuss goals of care and formulate questions for us. [facility] will remain available for support. RN, Dr Patricia and Dr Navarro updated on my conversation with pt's parents, ethics consult and request for DNR status. DNR VO received and entered. my con
[2021-01-30 13:30] LABS: Vancomycin, Trough 26.5 ug/mL (5.0-10.0)
--- NOTE | 2021-01-30 16:02 | NUR ---
PT UPDATE.... AT APROX 1345 THIS RN, RT AND 3 OTHER STAFF REPOSITIONED THE PT'S HEAD AND SHOULDERS/ARMS. THE PT'S O2 SATS DROPPED FROM 88-90% TO 84%, THIS LASTED APROX 1.5HRS THE PT'S O2 SATS IMPROVED TO 86%, PT'S VENT SETTINGS ARE 28/360/20/100% THE PT'S FATHER WAS ALLOWED INTO THE ROOM TO SEE THE PT, THE MOTHER AND THE FATHER MADE A DECISION TO MAKE THE PT A DNR, AN ETHICS CONSULT WAS PLACED BY PALLIATIVE CARE RN LUCRECIA (SEE JOANA MAGAÑA'S NOTE). THE PT'S CALLED ONE OF THE ER PROVIDERS ASKING FOR AN UPDATE ON HIS , THE ER PROVIDER CALLED THIS RN. THIS RN CALLED THE PT'S ELROY ORDAZ TO GIVE HIM AN UPDATE ON HER CURRENT CONDITON, HE WAS GIVEN AN UPDATE AND STARTED TO SOB ON THE PHONE HE SAID "I HAD NO IDEA SHE WAS THIS SICK" HE THEN SAID "I WANT TO COME IN AND SEE HER IF SHE IS DYING THEN I NEED TO HOLD HER IN MY ARMS." THE PT'S WAS INFORMED OF THE UNFORTUNATE NO VISITOR POLICY UNLESS THE PT IS ON COMFORT MEASURES OR ACTIVELY DYING. HE THEN SAID "YOU ARE NOT GOING TO KEEP ME AWAY FROM MY AND THERE IS NOTHING THAT IS GOING TO STOP ME!" WITH A VERY ANGRY AND AGRESSIVE TONE. TO DE-ESCALATE THE SITUATION THIS RN SAID SHE WOULD ASK THE CHARGE NURSE TO SEE IF AN EXCEPTION COULD BE MADE BUT STATED THAT SINCE HE HAD A CURRENT COVID INFECTION THE CHANGES WERE LOW THAT HE COULD COME IN. WHEN HE HUNG UP THIS RN INFORMED THE CHARGE NURSE DIOGENES OF THE SITUATION, PER THE CHARGE NURSE THE VISITING POLICY IS TO BE FOLLOWED. WHEN THIS RN CALLED THE PT'S SUSHMA BACK AND INFORMED HIM THAT HE WOULD NOT BE ABLE TO VISIT HER TODAY HE WAS MUCH MORE CALM AND ACCEPTING OF THIS ANSWER. HE BECAME VERY EMOTIONAL, STARTED SOBBING AND TOLD THIS RN "I JUST LOST MY MOTHER A WEEK AND HALF AGO AND NOW I'M LOSING MY , I CAN'T TAKE ANY MORE OF THIS! IF SHE DIES I AND THATS JUST HOW IT HAS TO BE." THIS RN PROVIDED THERAPEUTIC COMMUNICATION AND SYMPATHY TO SUSHMA. THIS RN FEELS IT IS UNWISE AT THIS TIME TO TELL THE PT'S THAT THE PT'S PARENTS WERE MADE HER DECISON MAKERS PER THE ETHICS PRESS CATCHER. HE IS ALSO NOT AWARE THAT THE PT WAS MADE A DNR PER THE PT'S PARENTS. WILL CONTINUE TO MONITOR.
--- NOTE | 2021-01-30 17:04 | NUR ---
PT UPDDATE... THIS RN ENTERED THE ROOM TO CHANGE THE BIS MONITOR STICKERS AND DO AN ASSESSMENT. THE BIS STICKERS WERE CHANGED AND THE MONITOR WAS READING 0-3, THE PT'S BIS HAS BEEN LOW T/O THE SHIFT BUT IN THE 10-20 RANGE, THE PT IS ON 40MCG OF PROPOFOL, THE PT'S BIS HAS BEEN LOW SINCE YESTERDAY BUT BECAUSE SHE IS ONLY ON 40MCG/KG/HR OF PROPOFOL STAFF HAVE BEEN RELUCTANT TO TURND IT DOWN WHILE SHE IS ON NIMBEX. HOWEVER AT THIS TIME THIS RN TURNED DOWN THE PROPOFL TO SEE IF THE NUMBER ON THE BIS MONITOR WOULD CHANGE. ALSO DURING THIS ASSESSMENT THIS RN NOTED THAT THE PT'S LEFT FOOT WAS MORE PURPLE THAN IT WAS THIS AM, ALL OF THE PT'S TOES AND HALF WAY UP THE FOOT IS COLD, PURPLE AND NON BLANCHING. THIS RN WAS NOT MORIAH TO FIND PULSES WITH THE DOPPLER UNLIKE THIS AM WHEN THE P. TIBIAL PULSE WAS FOUND WITH DOPPLER. DR. IVEY WAS NOTIFIED OF THIS CHANGE. THE TOES ON THE RIGHT FOOT ARE A LITTLE MORE PURPLE THAN THIS AM BUT THE DORSAL PEDIS PULSE IS STILL PALPABLE. ANOTHER NOTED CHANGE IS THE PT'S RIGHT PUPIL IS PINPOINT AND UNREACTIVE TO LIGHT, THERE IS MASSIVE SCLERAL EDEMA THAT HAS INCREASED FROM THIS AM. THIS RN CALLED THE PT'S WHILE IN THE ROOM AND HELD THE PHONE UP TO HER HEAR SO HE COULD TALK WITH HER. WILL CONTINUE TO MONITOR.
[2021-01-30 18:01] LABS: International Normalized Ratio 1.17; Prothrombin Time Results 12.5 Sec (9.7-11.5)
[2021-01-30 18:25] LABS: Glucose, Blood 503 mg/dL (70-99)
--- NOTE | 2021-01-30 18:44 | NUR ---
SHIFT SUMMARY... PT'S 1800 CBG CAME BACK "HI", BLOOD DRAW WAS DONE AND THE GLUCOSE WAS 503, DR. IVEY NOTIFIED, AN ORDER TO START AND INSULIN DRIP WAS PUT IN. PT CONTINUES TO BE IN AFIB W/RVR WITH RATES IN THE 130'S-150'S MOST OF THE TIME, CARDIZEM GTT RUNNING AT 15MG/HR. AMIO GTT RUNNING AT 0.5MG/HR. PT'S BP HAS BEEN STABLE T/O THE SHIFT. THE PT'S LEFT FOOT CONTINUES TO BE PURPLE AND COLD TO THE TOUCH. PT'S PROPOFOL WAS DECREASED DOWN FROM 40MCG 30MCG PT'S BIS IS STILL READING 0-5. PT'S BROTHERS DRAINED 200MLS THIS SHIFT, PT HAS NOT HAD A BM SINCE 01/26. WILL CONITNUE TO MONITOR UNTIL REPORT IS GIVEN TO ONCOMING RN.
[2021-01-30 23:15] LABS: Glucose, Blood 550 mg/dL (70-99)
[2021-01-31 03:31] LABS: BASOPHILS ABSOLUTE AUTO 0.11 K/mm3 (0.00-0.23); BASOPHILS PERCENT AUTO 1 % (0-2); Hematocrit 37.8 % (33.0-51.0); Hemoglobin 11.3 g/dL (11.5-16.0); LYMPHOCYTES ABSOLUTE AUTO 0.59 K/mm3 (0.84-5.20); LYMPHOCYTES PERCENT AUTO 3 % (21-46); MONOCYTES ABSOLUTE AUTO 0.37 K/mm3 (0.16-1.47); MONOCYTES PERCENT AUTO 2 % (4-13); Mean Corpuscular HGB 29.7 pg (26.0-34.0); Mean Corpuscular HGB Conc 29.9 g/dL (31.5-36.5); Mean Corpuscular Volume 100 fL (80-100); Mean Platelet Volume 11.9 fL (9.1-12.4); NRBC ABSOLUTE 0.27 K/mm3 (0.00-0.02); NRBC Auto 1.3 /100 WBC (0.0-0.2); Platelet Count 124 K/mm3 (150-400); RDW Coefficient Variation 14.7 % (11.7-14.2); RDW Standard Deviation 54.4 fL (35.1-46.3); White Blood Cell Count 20.72 K/mm3 (4.00-11.30)
[2021-01-31 03:33] LABS: EOSINOPHILS PERCENT AUTO 0 % (0-6); IMMATURE GRAN ABSOLUTE AUTO 0.62 K/mm3 (0.00-0.10); IMMATURE GRAN PERCENT AUTO 3 % (0-1); NEUTROPHILS ABSOLUTE AUTO 19.03 K/mm3 (1.96-9.15); NEUTROPHILS PERCENT AUTO 92 % (41-73)
[2021-01-31 03:45] LABS: Albumin, Blood 1.4 g/dL (3.4-5.0); Anion Gap 6 mmol/L (6-16); Blood Urea Nitrogen 57 mg/dL (8-24); Bun/Creatinine Ratio 16.9 (12.0-20.0); CO2, Blood 36 mmol/L (21-32); Calcium, Blood 6.4 mg/dL (8.5-10.1); Chloride, Blood 93 mmol/L (98-108); Creatinine, Blood 3.37 mg/dL (0.40-1.00); Glomerular Filtration Rate 15 (60-); Glucose, Blood 497 mg/dL (70-99); Potassium, Blood 3.8 mmol/L (3.5-5.5); Sodium, Blood 135 mmol/L (136-145); Vancomycin, Random 21.2 ug/mL
[2021-01-31 03:50] LABS: Phosphorus, Blood 4.8 mg/dL (2.5-4.9)
[2021-01-31 04:11] LABS: BAND PERCENT MAN 12 % (0-8); BASOPHILS PERCENT MAN 0 % (0-2); EOSINOPHILS PERCENT MAN 0 % (0-6); LYMPHOCYTES PERCENT MAN 1 % (21-46); METAMYELOCYTE ABSOLUTE MAN 1.03 K/mm3 (0.00-0.00); METAMYELOCYTE PERCENT MAN 5 % (0-0); MONOCYTES ABSOLUTE MAN 0.41 K/mm3 (0.16-1.47); MONOCYTES PERCENT MAN 2 % (4-13); MYELOCYTE PERCENT MAN 1 % (0-0); NEUTROPHILS ABSOLUTE MAN 18.64 K/mm3 (1.96-9.15); PROMYELOCYTE PERCENT MAN 1 % (0-0); SEG NEUTROPHILS PERCENT MAN 78 % (41-73); TOTAL CELLS COUNTED 100
--- NOTE | 2021-01-31 07:14 | NUR ---
Sedated under Propofol and paralyzed under Nimbex, as documented. Rspiratory supported by mechanical ventilation. Support settings were increased by Dr. Borjas (PEEP to 21), after Faizan related to turning the patient. Hemodynamic supported by Amiodarone and Diltiazem as documented. Around 0210 pulse was seen converted to normal sinus rhythm, around 95 bpm. Blood pressure stable w/o support. Urine via brooks catheter, anuric output. No bowel movement tonight. Insulin and Argatroban drips were started during the night, as documented. No calls asking about her well being, during the night.
--- NOTE | 2021-01-31 09:00 | NUR ---
ASSUMED CARE/ASSESSMENT ASSUMED CARE OF PT AT 0715. REPORT RECEIVED FROM JONO BRIONES. PT INTUBATED, SEDATED, PARALYZED, PRONE. PT HAS NO REFLEXES INTACT AT THIS TIME, PUPILS 2MM, RESPONSIVE TO LIGHT. EYELIDS AND FACE VERY EDEMATOUS. VENT SETTINGS AC 28, TV 360, PEEP 21, FIO2 100%, SPO2 88-92%, RR 28. LUNG SOUNDS VERY DIMINISHED T/O. SCANT THIN WHITE SECRETIONS SUCTIONED FROM ET TUBE. PT HAS OG TUBE IN PLACE WITH PIVOT 1.5 TF AT 20ML/HR. RESIDUAL CHECK 400 ML - 250 REINSTILLED. LIQUACEL HELD. TF PLACED ON HOLD AND WILL RE-ASSESS IN 4 HRS. UNABLE TO AUSCULTATE BOWEL TONES DUE TO PRONE POSITION. TEMP BROTHERS IN PLACE, DRAINING TO GRAVITY, 20ML DARK GREEN/YELLOW URINE IN BAG. SKIN OVERALL DRY AND INTACT, WITH DEPENDENT EDEMA. KIRILL LOWER EXTREMITIES COOL TO TOUCH AND DUSKY IN APPEARANCE. UNABLE TO DOPPLER PULSE TO LEFT FOOT, DOPPLER PULSE PRESENT ON RIGHT. PT HAS PICC TO JAZZ AND PG TO PRESTON. CURRENT DRIPS: ARGATROBAN, PROPOFOL AT 30, NIMBEX AT 1, BICARB AT 150, INSULIN AT 24, AMIODARONE AT 0.5, AND DILTIAZEM AT 5. SEE FLOWSHEET FOR TITRATIONS.
[2021-01-31 09:11] LABS: Glucose, Blood 460 mg/dL (70-99)
--- NOTE | 2021-01-31 12:00 | NUR ---
REPOSITION/DE-SATURATION DR. IVEY STATES TO LEAVE PT PRONE AND WILL RE-EVALUATE TOMORROW. IN TO ROOM TO TURN HEAD AND REPOSITION PT. RT TURNED HEAD AND PILLOWS MOVED. PT DE-SATURATES TO 72% AND AFTER APPROX 15 MINUTES REMAINS AT 79-80%. DR IVEY NOTIFIED, STATES THERE ARE NO ADDITIONAL CHANGES THAT CAN BE MADE AND TO CONTINUE TO MONITOR. PLAN TO MINIMIZE MOVEMENT OF PT FOR REMAINDER OF SHIFT.
[2021-01-31 13:10] LABS: HEPARIN INDUCED PLATELET AB 0.072 OD (0.000-0.400)
--- NOTE | 2021-01-31 16:00 | NUR ---
LOWER EXTREMITIES LOWER EXTREMITIES CONTINUE TO BE COOL TO TOUCH, NOW MORE PURPLE/CYANOTIC IN APPEARANCE. PULSES ABSENT EVEN VIA DOPPLER. DR IVEY AWARE. NO ADDITIONAL ORDERS RECEIVED AT THIS TIME. WILL CONTINUE ARGATROBAN GTT PTT ALLOWS, PER PHARMACY.
--- NOTE | 2021-01-31 16:32 | NUR ---
TUBE FEED TUBE FEED OFF AT THIS TIME PER DIETITICIAN DUE TO HIGH RESIDUALS AND INSULIN GTT.
--- NOTE | 2021-01-31 18:34 | NUR ---
SUMMARY PT REMAINS INTUBATED, SEDATED, PARALYZED AND PRONED. VENT SETTINGS UNCHANGED THIS SHIFT. PT DE-SATURATES WITH ANY SLIGHT MOVEMENTS AND TAKES A LONG TIME TO RECOVER OXYGEN SATS. PT BEING MOVED MINIMALLY DUE TO THIS. LUNG SOUNDS DIMINISHED T/O WITH NO SECRETIONS FROM ET TUBE THIS AFTERNOON. TUBE FEEDS TURNED OFF THIS SHIFT DUE TO INTOLERANCE AND INSULIN GTT. CURRENTS GTTS: NIMBEX AT 1, PROPOFOL AT 40, ARGATROBAN 0.38, INSULIN AT 18, AND AMIODARONE 0.5. ATTEMPTED DIURESIS OF PT THIS SHIFT WITH 18ML URINE OUTPUT FOR THE SHIFT. DR IVEY AWARE. KIRILL LOW EXT'S REMAIN PURPLE AND WITHOUT PULSES. PT'S FATHER IN TO ROOM TO SEE PT THIS AFTERNOON AT REQUEST OF DR. IVEY. PLAN TO RE-ASSESS GOALS OF CARE FOR PT TOMORROW.
--- NOTE | 2021-01-31 18:35 | NUR ---
review of pt in rounds. pt kps score is 20%
--- NOTE | 2021-02-01 06:46 | NUR ---
SHIFT SUMMARY FROM BEGINNING OF SHIFT PATIENT WAS NOT DOING WELL. COMMUNICATED DESATURATION, DECLINING BLOOD PRESSURE TO DR LONDON AFTER INITIALLY TRYING TO WEAN DOWN PROPOFOL DRIP. OVER COURSE OF NIGHT RESTARTED LEVOPHED, THEN STARTED VASOPRESSIN AND NEOSYNEPHRINE. CALLED FATHER TO BEDSIDE, WHO CALLED . BOTH WERE ABLE TO BE PRESENT WHEN PATIENT PASSED AT 04:42. IT HAS BEEN A PLEASURE TAKING CARE OF THIS PATIENT.
== END 2021-02-01 04:42 | DRG 207 ==
LOC: ER 18:11 → PCU 22:00 → ER 22:00 → ICUW 22:00 → PCU 01-26 11:00 → ICUW 01-27 07:54 → PCU 01-27 07:54 → ICUW 01-27 07:54
PROVIDERS: Family Medicine; Internal Medicine; Internal Medicine Critical Care Medicine; Pharmacist; Student in an Organized Health Care Education/Training Program; ADMIT Internal Medicine
PROC: 3E033XZ Introduction of Vasopressor into Peripheral Vein, Percutaneous Approach (ICD-10-PCS; principal; 2021-01-24)
PROC: 8E0ZXY6 Isolation (ICD-10-PCS; 2021-01-24)
PROC: 3E0333Z Introduction of Anti-inflammatory into Peripheral Vein, Percutaneous Approach (ICD-10-PCS; 2021-01-25)
PROC: XW033E5 Introduction of Remdesivir Anti-infective into Peripheral Vein, Percutaneous Approach, New Technology Group 5 (ICD-10-PCS; 2021-01-25)
PROC: 5A1955Z Respiratory Ventilation, Greater than 96 Consecutive Hours (ICD-10-PCS; 2021-01-27)
PROC: 0BH18EZ Insertion of Endotracheal Airway into Trachea, Via Natural or Artificial Opening Endoscopic (ICD-10-PCS; 2021-01-27)
DX: U07.1 COVID-19 (principal); J12.82 Pneumonia due to coronavirus disease 2019; J15.212 Pneumonia due to Methicillin resistant Staphylococcus aureus; J80 Acute respiratory distress syndrome; N17.0 Acute kidney failure with tubular necrosis; Z51.5 Encounter for palliative care; Z66 Do not resuscitate; Z68.42 Body mass index [BMI] 45.0-49.9, adult; E87.1 Hypo-osmolality and hyponatremia; I10 Essential (primary) hypertension; Z88.1 Allergy status to other antibiotic agents; K21.9 Gastro-esophageal reflux disease without esophagitis; R73.9 Hyperglycemia, unspecified; E03.9 Hypothyroidism, unspecified; J30.9 Allergic rhinitis, unspecified; E28.2 Polycystic ovarian syndrome; I89.0 Lymphedema, not elsewhere classified; R77.8 Other specified abnormalities of plasma proteins; E66.01 Morbid (severe) obesity due to excess calories; I48.91 Unspecified atrial fibrillation; D75.82 Heparin induced thrombocytopenia (HIT); T45.515A Adverse effect of anticoagulants, initial encounter; R34 Anuria and oliguria; Z88.0 Allergy status to penicillin; Z79.899 Other long term (current) drug therapy
CPT/HCPCS: 31500; 31720; 36415; 36569; 36600; 51702; 71045; 71260; 80048; 80053; 80069; 80202; 81001; 82803; 82947; 83735; 83880; 84100; 84484; 85025; 85027; 85610; 85730; 86022; 87070; 87077; 87086; 87147; 87186; 87205; 93005; 93010; 94002; 94003; 94640; 94660; 94668; 94762; 96374-59; 96375-59; 99285-25; A9270; C1751; C9113; J0282; J0330; J0883; J1100; J1650; J1815; J1885; J1940; J2060; J2370; J2704; J3010; J3370; J7030; J7040; J7050; J7060; J7070; Q9967; U0004